=== PATIENT | female | born 1960 | race Caucasian/White ===

== ENCOUNTER 2017-11-21 12:24 | Day surgery (SDC) | payer OTHER, SELFPAY ==
[2017-11-21] VITALS (14 sets, daily range): BP systolic 105–157; BP diastolic 37–73; PULSE 74–118; RESP 15–18; TEMP 36.3–37.2; O2SAT 88–99; BMI 27.3
--- NOTE | 2017-11-21 | IMM_PTH ---
PATIENT: ENDY CAT LOC: [facility] [place] U#:[id number] AGE/SX: 57/F ROOM: RE11/21/[address]: Dr. Abhinav Hammer MD : 1960 BED: DIS: 11/21/2017 SPEC #: [id number] RECD: 11/25/17 11:46 STATUS: JORGE REGiana #: [id number] KENTRELL: 11/21/17 00:[address]: Abhinav Hammer DEPT: IMMUNOHISTOCHEMISTRY RECD BY: Cleveland Riggs ENTERED: 11/25/17 11:53 SP TYPE: IMMUNO OTHR DR: Dr. Starla Hinds DO Tissues: A - Axillary lymph node, NOS B - Axillary lymph node, NOS C - Right breast, NOS Procedures: CK8 (initial) CALPONIN-1 (add) CK7 (add) E-CAD (add) Pankeratin (initial) Pankeratin (add) P40 (add) PHYSICIAN & INSTITUTION [address] [address] SPECIMEN INFORMATION: Tissue Source: A. Right axillary sentinel lymph node tissue, B. Additional right axillary sentinel lymph node tissue, C. Right breast tissue Clinical Info: right upper-outer quadrant breast cancer, ER positive Specimen Number: [id number] A1, A2, A3, A4, B1, C3 CPT code: 93568 x2, 64037 x12 METHODOLOGY: Deparaffinized sections of prefer/formalin-fixed tissue or PAP/DQ stained slides are incubated with monoclonal/polyclonal antibodies/oligonucleotide probes. Localization is made via biotin free immunoperoxidase method. Appropriate controls are performed and reacted as expected. Results on target cell population are indicated in the following table: RESULTS: ANTIBODY / CLONE RESULT Block A1 AE1-3 (AE1/AE3/PCK26) negative CK7 (OV-TL12/30) negative Block A2 AE1-3 (AE1/AE3/PCK26) negative CK7 (OV-TL12/30) negative Block A3 AE1-3 (AE1/AE3/PCK26) negative CK7 (OV-TL12/30) negative Block A4 AE1-3 (AE1/AE3/PCK26) negative CK7 (OV-TL12/30) negative Block B1 AE1-3 (AE1/AE3/PCK26) negative CK7 (OV-TL12/30) negative Block C3 P40 (BC28) negative Calponin-1 (GE234C) negative CK8 (56srzoC58) positive E-Cad (ECH-6) positive These tests were developed and their performance characteristics determined by [facility]. They may not have been cleared or approved by the U.S. Food and Drug Administration. The FDA has determined that such clearance or approval is not necessary. INTERPRETATION: A. Right axillary sentinel lymph node tissue, biopsy: Four out of four lymph nodes, negative for metastatic carcinoma. B. Additional right axillary sentinel lymph node tissue, biopsy: One lymph node, negative for metastatic carcinoma. C. Right breast tissue, biopsy: Invasive ductal carcinoma. SJ:hemant 11/26/17
--- NOTE | 2017-11-21 | AXNB_PTH ---
PATIENT: ENDY CAT LOC: [facility] [place] U#:[id number] AGE/SX: 57/F ROOM: RE11/21/[address]: Dr. Abhinav Hammer MD : 1960 BED: DIS: 11/21/2017 SPEC #: [id number] RECD: 11/21/17 15:47 STATUS: JORGE REGiana #: [id number] KENTRELL: 11/21/17 00:[address]: Abhinav Hammer DEPT: SURGICAL PATHOLOGY RECD BY: Janay Hernandez ENTERED: 11/22/17 07:49 SP TYPE: AX NODE BX OTHR DR: Dr. Starla Hinds DO Tissues: A - Axillary lymph node, NOS B - Axillary lymph node, NOS C - Right breast, NOS Procedures: Frozen Section (charge) Frozen Section Add'l ([facility]) Surgery Specimen Level V Frozen (no charge) HEADER OPERATION: Right breast lumpectomy with right axillary sentinel lymph node PRE-OP DIAGNOSIS: Right upper-outer quadrant breast cancer, ER positive TISSUE SUBMITTED: A ? Right axillary sentinel lymph node tissue for FS at 1544, B ? Additional right axillary sentinel lymph node tissue FS at 1549, C ? Right breast tissue to mammo at 1604, short stitch richards posterior medial margin, double long ? superior, single long - anterior FROZEN SECTION DIAGNOSIS A. Right axillary sentinel lymph node tissue, biopsy: Three out of three lymph nodes, negative for metastatic carcinoma. B. Additional right axillary sentinel lymph node tissue, biopsy: One lymph node, negative for metastatic carcinoma. SJ:hemant 11/21/17 MICROSCOPIC DIAGNOSIS A. Right axillary sentinel lymph node, biopsy: Four out of four lymph nodes, negative for metastatic carcinoma. See comment. B. Additional right axillary sentinel lymph node tissue, biopsy: One lymph node, negative for metastatic carcinoma. C. Right breast, lumpectomy: Invasive ductal carcinoma. INVASIVE BREAST CANCER SUMMARY: (Including specimens A, B & C) Specimen ? partial breast Procedure ? excision without wire-guided localization Lymph node sampling ? sentinel lymph node Specimen integrity ? single intact specimen Specimen size ? 10 x 6 x 4 cm Specimen laterality - right Tumor site ? upper outer quadrant (as per clinical information) Tumor size ? 3 x 2 mm (measured microsciopically) Tumor focality ? single focus of invasive carcinoma. Macroscopic and Microscopic extent of tumor: Skin ? skin is not present Nipple ? not applicable Skeletal muscle ? no skeletal muscle present Ductal carcinoma in situ (DCIS) ? no ductal carcinoma in situ is present. Lobular carcinoma in situ (LCIS) ? not identified Histologic type of invasive carcinoma ? invasive ductal carcinoma (no special type) Histologic Grade (Isabel grade): Glandular/tubular differentiation - score 2 Nuclear pleomorphism - score 1 Mitotic count ? score 1 Overall grade - 1 (score of 4) Margins: Margins uninvolved by invasive carcinoma. The tumor is 0.3 cm away from the closest medial margin. Treatment effect ? response to presurgical (neoadjuvant) therapy - no known presurgical therapy. Lymph nodes: Number of sentinel lymph nodes examined - 5 Total number of lymph nodes examined (sentinel and nonsentinel) - 5 Number of lymph nodes with macrometastases, micrometastases and isolated tumor cells - 0 Method of evaluation of sentinel lymph nodes - H & E, multiple levels and IHC. Distance metastasis ? not applicable Additional pathologic findings ? a large hemorrhagic cavity, consistent with previous biopsy site. Fibrocystic changes and intraductal hyperplasia without atypia. Ancillary studies - previously performed on section of tumor ([id number] / [id number]). ER ? positive (>95%, strong) VT ? positive (12%, weak) Her2 wily ? negative (0) Her2 by dual MELISSA ? not performed Microcalcifications ? frequent microcalcification in non-neoplastic tissue. Clinical history - Please make reference to previous specimen ([id number]) right breast, stereotactic needle core biopsy with diagnosis of invasive ductal carcinoma. PATHOLOGIC STAGE: pT1a pN0(sn) Mx The above summary is in compliance with [employer] (CAP) Cancer Protocols Checklist and [place] Joint Committee on Cancer (AJCC), Staging Manual, 8th Ed. SJ:rg 11/25/17 COMMENT A & B. One additional lymph node is identified in the indurated area (block A4). The lymph nodes are negative for metastatic carcinoma on multiple H & E levels and immunohistochemical stains for cytokeratins ([id number]). C. Immunohistochemistry ([id number]) supports the diagnosis of invasive ductal carcinoma. Please make reference to previous specimen ([id number]) right breast, core biopsy with diagnosis of fragments of adipose tissue, blood clots and rare cluster of benign ductal cells, no pathologic diagnosis. The previous biopsy ([id number]) also shows changes consistent with previous biopsy site. Case has been reviewed in consultation with Dr. Mayes who concurs with the above diagnosis. IDC:AM MICROSCOPIC DESCRIPTION Slides are reviewed. GROSS DESCRIPTION A - Received fresh for frozen section diagnosis labeled with the patient's name is a specimen designated right axillary sentinel lymph node tissue. The specimen consists of two pieces of adipose tissue measuring in aggregate 6 x 5 x 2 cm. Three nodules consistent with lymph nodes are identified measuring 0.7 to 1 cm in greatest dimension. The lymph node tissue is submitted in entirety for frozen section diagnosis. [employer] sections are submitted in four cassettes as follows: 1 ? one lymph node, 2 & 3 ? each cassette containing one bisected lymph node, 4 ? indurated area, possible lymph node tissue. / SJ: 11/21/17 B - Received fresh for frozen section consultation/diagnosis labeled with the patient's name is a specimen designated additional right axillary sentinel lymph node tissue. The specimen consists of a piece of adipose tissue containing a nodule consistent with lymph node measuring 5 x 2.5 x 1 cm. One lymph node is identified measuring 1.5 cm in greatest dimension. The lymph node is submitted entirely for frozen section diagnosis in one cassette. / SJ: 11/21/17 C - Received fresh for intraoperative consultation labeled with the patient's name and designated right breast tissue. The specimen consists of a piece of yellow adipose tissue measuring 10 x 6 x 4 cm. No wire is identified. The specimen is oriented as follows: short stitch richards posterior medial margin, single long ? anterior, double long ? superior. The specimen is inked as follows: anterior ? yellow, posterior ? black, superior ? blue, medial ? red and lateral ? orange. Serial sections reveal a hemorrhagic cavity occupying most of the specimen measuring 8 x 4 x 2.5 cm. No tumor mass is identified. The biopsy cavity is 0.2 cm from the closest posterior margin. This information is conveyed to the surgeon intraoperatively. Sections of the rest of the specimen reveal bermudez-yellow adipose cut surfaces with scant fibrous areas. Also, the biopsy cavity is filled with multiple blood clots. Also present in the specimen are multiple blood clots. [employer] sections of the cavity with surrounding tissue including adjacent margins are submitted in 12 cassettes. / SJ:hemant 11/22/17 TC:0 CPT: 24694 x3, 14456 x2, 53545 x2, 69416
--- NOTE | 2017-11-21 12:38 | EKG12_ITS ---
Test Reason : PRE-OP Blood Pressure : / mmHG Vent. Rate : 071 BPM Atrial Rate : 071 BPM P-R Int : 136 ms QRS Dur : 080 ms QT Int : 396 ms P-R-T Axes : 009 034 025 degrees QTc Int : 430 ms Normal sinus rhythm Normal ECG Confirmed by LEXI DARBY, DAVIDSON ([id number]), publication editor GERONIMO SPIVEY ([id number]) on 11/27/2017 12:03:38 PM Referred By: Abhinav Hammer Confirmed By:DAVIDSON ELLIOTT MD
--- NOTE | 2017-11-21 12:39 | RAD_ITS ---
STUDY: X-RAY CHEST REASON FOR EXAM: Female, 57 years old. Dyspnea and shortness of breath. TECHNIQUE: Single AP portable view of the chest. COMPARISON: None. FINDINGS: The lungs are clear and expanded. Scattered calcified granulomas. There is no demonstrated pleural abnormality. Normal size heart. Normal mediastinum and leticia. Normal visualized pulmonary arteries. Normal visualized aortic arch and descending thoracic aorta. There are degenerative changes of the visualized thoracic spine. Normal visualized ribs, clavicles, and shoulders. There is no demonstrated abnormality of the visualized soft tissue structures of the upper abdomen. RAD/Chest 1 View IMPRESSION: Normal x-ray examination of the chest. Electronically Signed: Drake Castillo MD at 13:27 EST Tel [phone], Service support ,
[2017-11-21 13:21] LABS: Hematocrit 42.7 % (37-47); Hemoglobin 14.2 g/dl (12.0-15.0); Mean Corp Hgb Conc 33.3 g/gl (32-36); Mean Corpuscular Hgb 30.3 pg (27.0-32.0); Mean Corpuscular Volume 91.2 fL (81-99); Mean Platelet Vol. 9.4 fl (6.2-12.0); Platelet Count 285 K/mm3 (150-450); RBC Distribution Width CV 13.2 % (11.6-14.6); RBC Distribution Width SD 43.4 fl (35.1-43.9); Red Blood Count 4.68 M/mm3 (4.2-5.4); White Blood Count 6.2 K/mm3 (4.4-11.0)
[2017-11-21 13:23] LABS: Scan Indicated on CBC? Y/N NO
[2017-11-21 13:40] LABS: Anion Gap 7 (5-15); BUN 8 mg/dL (7-18); BUN/Creat Ratio 10.6 RATIO (10-20); Calcium,Total 8.8 mg/dL (8.5-10.1); Chloride 103 mmol/L (98-107); Creatinine, Serum 0.75 mg/dL (0.55-1.02); EST Glomerular Filtration Rate 84 mL/min (>60); Est Glom Filt Rate - Afr Amer 102 mL/min (>60); Estimated Creatinine Clearance 68.46 ml/min; Glucose 93 mg/dL (70-110); Sodium Level 138 mmol/L (136-145)
--- NOTE | 2017-11-21 15:07 | DCINST_ITS ---
Discharge Diet: Light diet - advance as tolerated - if you have questions about your diet instructions, please talk to you doctor. Discharge Activity: May Not Drive - for 1 week or while taking narcotic pain medicine. May shower in (days): 1 Lifting Restrictions: 10 pounds Call your doctor if your incision/area has: Continuous Slow Oozing, Sudden Increased Bleeding, Increased Pain/ Swelling, Increased Redness, Foul Smelling Discharge Call your doctor if you observe: Fever of 101 or Higher Suture Line Care: Avoid Pulling/Pushing, Avoid Pinching/Bending Additional Dressing/Incision Instructions:: You may remove the bulky tape dressing tomorrow. You may shower over your plastic dressing. You may remove the plastic dressing in 2 additional days. At any time you may remove dressings if there are signs of redness, blistering or irritation Allergies/Adverse Reactions: Allergies adhesive tape Allergy (Verified 11/20/17 13:35) Itching nickel Allergy (Verified 11/20/17 13:35) Rash soy Allergy (Verified 11/20/17 13:35) cough silicone Adverse Reaction (Verified 11/20/17 13:35) blisters Medications to take at Discharge buspirone 10 mg tablet 10 mg PO BID 10/24/17 cholecalciferol (vitamin D3) 2,000 unit capsule 2,000 unit PO DAILY 10/24/17 paroxetine 20 mg tablet 20 mg PO QDAY 10/24/17 Hydrocodone Bitart/Apap 5-325 [[place]am 5MG-325MG] 1 tablet PO Q6H PRN PRN #8 tablet 11/21/17 The following prescriptions were given: Hydrocodone Bitart/Apap 5-325 [[place]am 5MG-325MG] 1 tablet PO Q6H PRN PRN #8 tablet PRN Reason: Pain Primary Care Physician: Starla Hinds DO [Primary Care Provider] - Please Follow Up With: Abhinav Hammer MD - [phone] When: Call to make an appointment to be seen in about 7 days.
[2017-11-21] MEDS: Isosulfan Blue 1% 5 ML Vial (15:13)
[2017-11-21] MEDS: Bupivacaine Mpf 0.5% 30 ML VIAL (16:10)
--- NOTE | 2017-11-21 16:15 | HPBI_ITS ---
SURGICAL BREAST SPECIMEN RADIOGRAPH CLINICAL: Document presence of tissue clip marker in biopsy specimen. FINDINGS: Specimen shows presence of tissue clip marker. Electronically Signed: Drake Castillo MD at 8:17 EST Tel [phone], Service support , [facility]/Breast Biopsy Specimen
--- NOTE | 2017-11-21 16:24 | PCM.OPRPT ---
Problem List (1) Breast CA Status: Acute Qualifiers: Breast location: upper inner quadrant of breast Patient sex: female Laterality: right (2) Breast cancer Status: Acute Qualifiers: Breast location: upper inner quadrant of breast (3) Breast cancer in female Status: Acute Report of Operation Date of Procedure: 11/21/17 Pre-Operative Diagnosis: Upper inner quadrant right breast cancer with biopsy related hematoma Post-Operative Diagnosis: Same Surgery/Procedure Performed:: Right axillary blue dye sentinel lymph node biopsy with upper inner right breast lumpectomy Description of Surgical Findings:: Timeout and informed consent was obtained. 57-year-old female was taken to the operating room and placed supine on the table. She underwent general anesthesia. The right arm was carefully wrapped with soft roll and placed at right angles to the table with an arm fitch. The right retroareolar breast was prepped with alcohol. 2.5 cc of isosulfan blue dye was injected massage was minutes. The right breast and axilla were sterilely prepped and draped. An oblique incision was made in the right axilla sharp dissection carried down through significant amount of fibrofatty tissue. Very faint blue dye tracking was identified to a packet of lymph node material which was then dissected free. Hemostasis obtained with electrocautery and hemoclips. 2 small segments of tissue were removed and submitted. There was no residual blue staining. There is no residual palpable mass. That was then packed with gauze. I made a curvilinear incision in the upper inner right breast at the site of the significant hematoma. Then sharp and cautery dissection was performed circumferentially around the entire hematoma cavity. Immediately I did get into the hematoma we had aspirate some thrombus. I then was able to more successfully get around it inferiorly posteriorly and laterally. I placed a short suture posterior medial at the site where I got into it. I placed a single suture anteriorly and a long double suture superiorly. The cavity was inspected it was irrigated hemostasis was obtained the wound was closed with a deep layer of interrupted 3-0 Vicryl and the skin was proximally to the running septic or 4-0 Monocryl. The axilla was inspected that incision was closed with running subcuticular 4-0 Monocryl. Both lissette-incisional areas anesthetized with a total of 30 cc of 0.5% Marcaine. Steri-Strips Telfa OpSite dressings followed by bulky dry dressings were applied. Sponge instrument and needle counts were reported the surgeon for correct. Blood loss was minimal. She tired procedure well. Report of 4 sentinel nodes on frozen section negative for cancer. Specimen mammogram was obtained showing a marking clip in good position. Gross margins were felt to be free. Abhinav Hammer M.D., F.A.C.S.
[2017-11-21] MEDS: HYDROcodone Bitartrate/Apap 5/325 Tablet PO (19:42)
== END 2017-11-21 19:49 | disposition home or self-care (01) ==
LOC: SDC 12:25 → AC 12:27
PROVIDERS: Anesthesiology; Family Provider Internal Medicine; PCP Internal Medicine; Visit Provider Surgery
PROC: (CPT 19301; principal; 2017-11-21 14:05)
DX: C50.211 Malignant neoplasm of upper-inner quadrant of right female breast (principal); N64.89 Other specified disorders of breast; Z17.0 Estrogen receptor positive status [ER+]; D64.9 Anemia, unspecified; F41.9 Anxiety disorder, unspecified
CPT/HCPCS: 00400; 19301; 38525; 71045; 76098; 80048; 85027; 88305; 88307; 88331; 88332; 88341; 88342; 93005; J7120; J2405; Q9968

== ENCOUNTER → 2017-12-12 13:19 | Outpatient (CLI) | payer OTHER, SELFPAY ==
[2017-12-05 13:37] VITALS: BP 146/79; BMI 27.3
[2017-12-12 11:13] VITALS: BP 136/63; BMI 27.3
--- NOTE | 2017-12-12 13:22 | HPBD_ITS ---
STUDY: DUAL ENERGY X-RAY ABSORPTIOMETRY / DXA REASON FOR EXAM: Female, 57 years old. The patient is postmenopausal. No loss of height. History of breast cancer. TECHNIQUE: Bone Mineral Density (BMD) measurements of lumbar spine and bilateral hips were obtained. COMPARISON: None. FINDINGS: Lumbar Spine (L1-L4): g/cm2 (0.877) / T-score (-2.5) / Z-score (-1.5) Findings are suggestive of osteopenia with a moderate fracture risk. Left Femur Total: g/cm2 (0.828) / T-score (-1.4) / Z-score (-0.6) Left Femoral Neck: g/cm2 (0.772) / T-score (-1.9) / Z-score (-0.8) Right Femur Total: g/cm2 (0.844) / T-score (-1.3) / Z-score (-0.5) Right Femoral Neck: g/cm2 (0.780) / T-score (-1.9) / Z-score (-0.7) HPBD/Dexa Bone Density Study (HP) IMPRESSION: The patient is considered osteopenic as outlined below according to World [place] Organization (WHO) criteria with a moderate fracture risk. Reference Information: The T-score is the number of standard deviations above or below the standard which is normal for young adults at their peak bone mineral density. The World Health Organization (WHO) interprets the T-scores as follows: Above -1 Normal bone density Between -1 and -2.5 Osteopenia Equal to / or below -2.5 Osteoporosis As a practical clinical guideline, osteopenia may be graded as follows: Mild -1 through -1.5 Moderate -1.6 through -2.0 Severe -2.1 through -2.4 The Z-score is the number of standard deviations above or below age-matched controls. A Z-score of less than -1.5 would be considered abnormal. References: 1. NIH Osteoporosis and Related Bone Diseases http://www.osteo.org 2. International Society for Clinical Densitometry http://www.iscd.org 3. National Osteoporosis Foundation http://www.nof.org Electronically Signed: Drake Castillo MD at 14:59 EST Tel [phone], Service support ,
== END ==
PROVIDERS: Family Provider Internal Medicine; PCP Internal Medicine; Visit Provider Internal Medicine Hematology & Oncology
DX: Z78.0 Asymptomatic menopausal state (principal); Z79.899 Other long term (current) drug therapy
CPT/HCPCS: 77080

== ENCOUNTER → 2017-12-18 16:22 | Outpatient (CLI) | payer OTHER, SELFPAY ==
[2017-12-12 11:13] VITALS: BMI 27.3
[2017-12-24 16:05] LABS: HPV APTIMA, High Risk Negative (Negative)
== END ==
PROVIDERS: Family Provider Internal Medicine; PCP Internal Medicine; Visit Provider Nurse Practitioner Women's Health
DX: Z12.4 Encounter for screening for malignant neoplasm of cervix (principal); N89.8 Other specified noninflammatory disorders of vagina
CPT/HCPCS: 87070; 87205; 88175; G0145

== ENCOUNTER → 2018-09-22 08:28 | Outpatient (CLI) | payer OTHER, SELFPAY ==
[2017-12-12 11:13] VITALS: BMI 27.3
[2018-06-19 11:29] VITALS: BMI 29.2
--- NOTE | 2018-09-22 08:32 | BI_ITS ---
MAMMOGRAPHY - BILATERAL DIAGNOSTIC REASON FOR EXAM: Female, 58 years old. Status post right lumpectomy for invasive ductal carcinoma. PERTINENT HISTORY: Personal history of breast cancer. TECHNIQUE: Digital bilateral breast juliane (3D mammographic acquisition) in the CC and MLO projections. 2-D mediolateral oblique (MLO) and craniocaudad (CC) views of both breasts were obtained. CAD: Full Field Digital Mammography with Computer Added Detection was performed. COMPARISON: Comparison is made with prior mammogram dated September 17, 2017 and November 12, 2017. FINDINGS: Breast Composition: The breasts are heterogeneously dense, which may obscure small masses. There are no dominant masses or suspicious calcifications. The previously seen nodular density in the upper lateral portion of the right breast is not seen at this time. Surgical clips are seen in the right axillary region. Postsurgical changes are seen in the deep upper lateral aspect of the right breast most likely postsurgical in nature. Skin thickening of the right breast. No other significant abnormalities are identified. BI/DIAG MAMM W/CAD, BILAT IMPRESSION: Status post resection of the hematoma in the upper outer quadrant of the right breast. Postsurgical changes are seen in the upper lateral portion of the right breast. One year follow-up recommended. (A) ASSESSMENT CATEGORY: BIRADS Category 2: Benign. A letter regarding these results will be sent to the patient by the facility within 30 days. Approximately 10% of breast cancers are not detected by mammography. A normal mammogram should not delay biopsy of a clinically suspicious abnormality. Electronically Signed: Drake Castillo MD at 14:50 EST Tel [phone], Service support ,
== END ==
PROVIDERS: Family Provider Internal Medicine; PCP Internal Medicine; Referring Provider Student in an Organized Health Care Education/Training Program; Visit Provider Student in an Organized Health Care Education/Training Program
DX: C50.911 Malignant neoplasm of unspecified site of right female breast (principal)
CPT/HCPCS: 77062; 77066; G0279

== ENCOUNTER → 2019-09-24 10:58 | Outpatient (CLI) | payer OTHER, SELFPAY ==
[2018-09-22 09:35] VITALS: BMI 29.2
[2019-07-02 13:31] VITALS: BMI 28.8
--- NOTE | 2019-09-24 11:01 | BI_ITS ---
MAMMOGRAPHY - BILATERAL SCREENING REASON FOR EXAM: Female, 59 years old. Routine annual screening examination. PERTINENT HISTORY: Personal history of breast cancer. Prior right lumpectomy and radiation therapy. Prior right stereotactic breast biopsy. TECHNIQUE: Digital bilateral breast augustine (3D mammographic acquisition) in the CC and MLO projections. 2-D mediolateral oblique (MLO) and craniocaudad (CC) views of both breasts were obtained. CAD: Full Field Digital Mammography with Computer Added Detection was performed. COMPARISON: Comparison is made with prior study in September 22, 2018 and November 21, 2017. FINDINGS: Breast Composition: The breasts are heterogeneously dense, which may obscure small masses. There are no dominant masses or suspicious calcifications. Stable postoperative changes are seen in the upper deep central portion of the right breast in keeping with prior lumpectomy and node dissection. No new mass lesion or cluster of microcalcifications present. No other significant abnormalities are identified. There has been no significant change since the prior study. BI/SCREEN MAMM (CAD) W/AUGUSTINE BILAT IMPRESSION: Stable bilateral screening mammogram. Yearly follow-up mammogram recommended. (A) ASSESSMENT CATEGORY: BIRADS Category 2: Benign. A letter regarding these results will be sent to the patient by the facility within 30 days. Approximately 10% of breast cancers are not detected by mammography. A normal mammogram should not delay biopsy of a clinically suspicious abnormality. [id number] Electronically Signed: Drake Castillo, at 12:41 EST , Service support ,
== END ==
PROVIDERS: Family Provider Internal Medicine; PCP Internal Medicine; Referring Provider Student in an Organized Health Care Education/Training Program; Visit Provider Student in an Organized Health Care Education/Training Program
DX: Z12.31 Encounter for screening mammogram for malignant neoplasm of breast (principal)
CPT/HCPCS: 77063; 77067

== ENCOUNTER → 2020-01-12 10:36 | Outpatient (CLI) | payer OTHER, SELFPAY ==
[2018-09-22 09:35] VITALS: BMI 29.2
[2020-01-04 14:07] VITALS: BMI 30.1
--- NOTE | 2020-01-12 10:40 | BD_ITS ---
STUDY: DUAL ENERGY X-RAY ABSORPTIOMETRY / DXA REASON FOR EXAM: Female, 59 years old. 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 COMPARISON: Comparison is made with prior examination dated December 12, 2017. FINDINGS: Lumbar Spine (L1-L4): g/cm2 (0.980) / T-score (-1.7) / Z-score (-0.5) Findings are suggestive of osteopenia with a moderate fracture risk. Left Femur Total: g/cm2 (0.852) / T-score (-1.2) / Z-score (-0.3) Left Femoral Neck: g/cm2 (0.783) / T-score (-1.8) / Z-score (-0.6) Right Femur Total: g/cm2 (0.888) / T-score (-0.9) / Z-score (0.0) Right Femoral Neck: g/cm2 (0.819) / T-score (-1.6) / Z-score (-0.3) The T-Scores on the most recent prior examination were: Lumbar Spine (L1-L4): There has been improvement of bone density since the previous examination. Left Femur Total: which represents an improvement of 2.9%. Right Femur Total: which represents an improvement of 5.2%. BD/Dexa Bone Density Study IMPRESSION: The patient is considered osteopenic as outlined below according to World [place] Organization (WHO) criteria with a moderate fracture risk. There has been improvement of bone density since the previous examination. Reference Information: The T-score is the number of standard deviations above or below the standard which is normal for young adults at their peak bone mineral density. The World Health Organization (WHO) interprets the T-scores as follows: Above -1 Normal bone density Between -1 and -2.5 Osteopenia Equal to / or below -2.5 Osteoporosis As a practical clinical guideline, osteopenia may be graded as follows: Mild -1 through -1.5 Moderate -1.6 through -2.0 Severe -2.1 through -2.4 The Z-score is the number of standard deviations above or below age-matched controls. A Z-score of less than -1.5 would be considered abnormal. References: 1. NIH Osteoporosis and Related Bone Diseases http://www.osteo.org 2. International Society for Clinical Densitometry http://www.iscd.org 3. National Osteoporosis Foundation http://www.nof.org Electronically Signed: Drake Castillo, at 14:08 EDT , Service support ,
== END ==
PROVIDERS: PCP Internal Medicine; Referring Provider Internal Medicine Hematology & Oncology; Visit Provider Internal Medicine Hematology & Oncology
DX: C50.911 Malignant neoplasm of unspecified site of right female breast (principal); M85.80 Other specified disorders of bone density and structure, unspecified site; Z79.811 Long term (current) use of aromatase inhibitors
CPT/HCPCS: 77080

== ENCOUNTER 2020-09-30 00:14 | Emergency (ER) | payer OTHER, SELFPAY ==
[2018-09-22 09:35] VITALS: BMI 29.2
[2020-04-25 13:00] VITALS: BMI 30.1
[2020-09-30 00:14] VITALS: BP 141/74; PULSE 94; RESP 20; TEMP 36.4; O2SAT 91; BMI 29.4
[2020-09-30 00:26] VITALS: BP 141/74; PULSE 94; RESP 20; TEMP 36.4; O2SAT 91
--- NOTE | 2020-09-30 00:33 | CT_ITS ---
STUDY: CT ABDOMEN AND PELVIS WITH CONTRAST REASON FOR EXAM: Female, 60 years old. N/V RADIATION DOSAGE (If Supplied By Facility): CTDIvol = ( 14.00 ) mGy, DLP = ( 1029.07 ) mGycm TECHNIQUE: Transaxial images were obtained from the dome of the diaphragm to the symphysis pubis without oral contrast. IV 100mL Isovue-300 was administered. Sagittal and coronal images were reconstructed. Individualized dose optimization techniques were used for this CT. COMPARISON: None. FINDINGS: Ill-defined subpleural groundglass opacities are seen more prominent in the lung bases , may represent atypical pneumonia or viral pneumonia (COVID-19 ?). The visualized portions of the heart are within normal limits. Normal liver. Normal gallbladder and extrahepatic biliary system. Normal spleen. Normal pancreas. Normal bilateral adrenal glands. Normal right kidney. Normal left kidney. There is a small hiatal hernia. Normal small intestine. Normal colon. The appendix is visualized and appears normal. There is diffuse atherosclerotic calcification of the abdominal aorta, without a demonstrated aneurysm. Normal inferior vena cava. Normal retroperitoneum. Normal urinary bladder. Normal abdominal wall. Normal osseous structures. CT/Abdomen/Pelvis W IV Cont ONLY IMPRESSION: Ill-defined subpleural groundglass opacities are seen more prominent in the lung bases , may represent atypical pneumonia or viral pneumonia (COVID-19 ?). There is a small hiatal hernia. Electronically Signed: Meghan Bauer, at 2:10 EST Tel , Service support ,
--- NOTE | 2020-09-30 00:33 | EKG12_ITS ---
Test Reason : DYSRHYTHMIA Blood Pressure : / mmHG Vent. Rate : 090 BPM Atrial Rate : 090 BPM P-R Int : 142 ms QRS Dur : 074 ms QT Int : 352 ms P-R-T Axes : 015 022 009 degrees QTc Int : 430 ms Normal sinus rhythm Normal ECG Confirmed by LIZABETH DARBY, BERNARDO ([id number]), mapping editor VALDEMAR MCMANUS ([id number]) on 10/04/2020 9:04:57 AM Referred By: Confirmed By:BERNARDO BARONE MD
[2020-09-30 00:40] LABS: Absolute Lymphocyte Count 1.33 X10^3/uL (0.83-4.51); Absolute Neutrophil Count 4.2 X10^3/uL (2.0-7.7); Basophil# 0.01 X10^3/uL; Basophil% 0.2 % (0-1); Hematocrit 43.1 % (37-47); Hemoglobin 13.9 g/dL (12.0-15.0); Lymphocyte # 1.33 X10^3/ul (4.0); Lymphocyte % 22.4 % (19-41); Mean Corp Hgb Conc 32.3 g/dL (32-36); Mean Corpuscular Hgb 29.3 pg (27.0-32.0); Mean Corpuscular Volume 90.7 fL (81-99); Mean Platelet Vol. 9.9 fl (6.2-12.0); Monocyte% 6.7 % (0-10); NRBC Flagged by Analyzer 0 % (0-5); Neutrophil # 4.18 X10^3/uL (2.7-7.7); Neutrophil % 70.4 % (47-70); Platelet Count 213 K/mm3 (150-450); RBC Distribution Width CV 12.6 % (11.6-14.6); RBC Distribution Width SD 42.1 fl (35.1-43.9); Red Blood Count 4.75 M/mm3 (4.2-5.4); White Blood Count 5.9 K/mm3 (4.4-11.0)
[2020-09-30] MEDS: Ondansetron 4 MG/2 ML Vial IV (00:46)
--- NOTE | 2020-09-30 00:46 | RAD_ITS ---
STUDY: X-RAY CHEST REASON FOR EXAM: Female, 60 years old. PT TESTED POSITIVE FOR COVID 09/19. HAVING INCREASED N/V -- DENIES ANY CHEST PROBLEMS TECHNIQUE: Single AP portable view of the chest. COMPARISON: None. FINDINGS: The lungs are clear and expanded. There is no demonstrated pleural abnormality. Normal size heart. Normal mediastinum and leticia. Normal visualized pulmonary arteries. Normal visualized aortic arch and descending thoracic aorta. Normal visualized thoracic spine. There is degenerative osteoarthritis of the bilateral shoulders. There is no demonstrated abnormality of the visualized soft tissue structures of the upper abdomen. RAD/Chest 1 View (Portable) IMPRESSION: Degenerative changes, as described above. No demonstrated acute cardiopulmonary process. Electronically Signed: Meghan Bauer, at 1:47 EST Tel , Service support ,
[2020-09-30] MEDS: 0.9% Normal Saline 1,000 ML 1000 ML IV (00:47)
--- NOTE | 2020-09-30 00:47 | ED.VISSUMM ---
- ER Visit Summary Date of Service: 09/30/20 Chief Complaint: Nausea History of Present Illness: The patient is a 60 F presenting with nausea. Patient states she was diagnosed with Covid on September 19. She states her symptoms began with nausea and chills. She has had fever, chills at home. She states she has been taking Zofran for her nausea which was helping until recently. She complains of epigastric abdominal pain. She denies diarrhea. She has had decreased appetite and generalized fatigue. She denies chest pain or shortness of breath. She has a mild cough. Physical Examination: Vitals are stable. Patient is afebrile. Alert no acute distress. HEENT exam is unremarkable. Neck is supple. Lungs are clear and equal bilaterally. Heart is regular rate and rhythm. Abdomen is soft mild epigastric tenderness with no guarding or rebound Extremities are unremarkable. Skin is warm and dry. No focal neurologic deficit. Remainder of exam is unremarkable. Emergency Department Course and Treatment: Patient was given IV fluids, Zofran. CBC, chemistries unremarkable. Liver lipase are normal. Troponin negative. EKG is sinus rhythm rate of 90 with no acute ischemic changes. Chest x-ray shows no acute process. CT abdomen pelvis shows Ill-defined subpleural groundglass opacities are seen more prominent in the lung bases , may represent atypical pneumonia or viral pneumonia (COVID-19 ?). There is a small hiatal hernia. On reevaluation, patient's nausea has improved. Her ambulatory pulse ox is 94% on room air. She is given prescription for Phenergan. She is advised signs and symptoms for which to return to the ED. Advised to follow-up with primary care physician. Disposition: Discharge home Impression: COVID-19, nausea This note was generated with [employer] dictation software. It may contain incorrect words, spelling, and punctuation that were not noted in review of the chart prior to signing ED Disposition - Plan for ED Patient: Instructions: ED Nausea Vomiting Adult Prescriptions: proMETHazine tablet [Phenergan] 25 mg PO Q6H PRN PRN #10 tab PRN Reason: Nausea Prescription Printed Referrals: Starla Hinds DO [Primary Care Provider] -
[2020-09-30 01:07] LABS: ALB/GLOB Ratio 0.8 RATIO (0.9-2.4); AST(SGOT) 25 U/L (15-37); Alanine Aminotransfer ALT/SGPT 39 U/L (13-56); Albumin, Serum 3.4 g/dL (3.2-5.0); Alkaline Phosphatase 72 U/L (45-117); Anion Gap 9 (5-15); BUN 15 mg/dL (7-18); BUN/Creat Ratio 17.7 RATIO (10-20); Calcium,Total 8.5 mg/dL (8.5-10.1); Chloride 104 mmol/L (98-107); Creatinine, Serum 0.85 mg/dL (0.55-1.02); EST Glomerular Filtration Rate 73 mL/min (>60); Est Glom Filt Rate - Afr Amer 88 mL/min (>60); Estimated Creatinine Clearance 58.22 ml/min; Globulin 4.1 g/dL (2.2-4.2); Glucose 111 mg/dL (74-106); Lipase 94 U/L (73-393); Potassium 3.8 mmol/L (3.5-5.1); Protein, Total 7.5 g/dL (6.4-8.2); Sodium Level 140 mmol/L (136-145)
[2020-09-30 02:36] VITALS: O2SAT 95
--- NOTE | 2020-09-30 03:05 | ED.DEP ---
ED Disposition - Plan for ED Patient: Instructions: ED Nausea Vomiting Adult Prescriptions: proMETHazine tablet [Phenergan] 25 mg PO Q6H PRN PRN #10 tab PRN Reason: Nausea Prescription Printed Referrals: Starla Hinds DO [Primary Care Provider] -
[2020-09-30 03:24] VITALS: RESP 14
== END 2020-09-30 03:24 | disposition home or self-care (01) ==
LOC: ED 01:48
PROVIDERS: Emergency Provider Emergency Medicine; PCP Internal Medicine
DX: U07.1 COVID-19 (principal); R11.0 Nausea; R10.13 Epigastric pain; R05 Cough; K44.9 Diaphragmatic hernia without obstruction or gangrene; Z85.3 Personal history of malignant neoplasm of breast; Z79.899 Other long term (current) drug therapy
CPT/HCPCS: 71045; 74177; 80053; 83690; 84484; 85025; 93005; 96361; 96374; 99284; J7030; Q9967; J2405

== ENCOUNTER → 2020-11-08 14:39 | Outpatient (CLI) | payer OTHER, SELFPAY ==
[2018-09-22 09:35] VITALS: BMI 29.2
[2020-04-25 13:00] VITALS: BMI 30.1
[2020-11-08 12:36] VITALS: BMI 28.0
--- NOTE | 2020-11-08 14:41 | BI_ITS ---
MAMMOGRAPHY - BILATERAL SCREENING REASON FOR EXAM: Female, 60 years old. Routine annual screening examination. PERTINENT HISTORY: Personal history of breast cancer. Prior right lumpectomy. Aunt with breast cancer. TECHNIQUE: Digital bilateral breast augustine (3D mammographic acquisition) in the CC and MLO projections. 2-D mediolateral oblique (MLO) and craniocaudad (CC) views of both breasts were obtained. CAD: Full Field Digital Mammography with Computer Added Detection was performed. COMPARISON: Comparison is made with prior study dated 09/24/2019 and 09/22/2018. FINDINGS: Breast Composition: The breasts are heterogeneously dense, which may obscure small masses. There are no dominant masses or suspicious calcifications. The patient is status post lumpectomy in the deep upper lateral aspect of the right breast. Surgical clips are also seen in the right axillary region. No other significant abnormalities are identified. There has been no significant change since the prior study. BI/SCREEN MAMM (CAD) W/AUGUSTINE BILAT IMPRESSION: Stable bilateral screening mammogram. Yearly follow-up mammogram recommended. (A) ASSESSMENT CATEGORY: BIRADS Category 2: Benign. A letter regarding these results will be sent to the patient by the facility within 30 days. Approximately 10% of breast cancers are not detected by mammography. A normal mammogram should not delay biopsy of a clinically suspicious abnormality. [id number] Electronically Signed: Drake Castillo, at 15:40 EST , Service support ,
== END ==
PROVIDERS: PCP Internal Medicine; Referring Provider Student in an Organized Health Care Education/Training Program; Visit Provider Student in an Organized Health Care Education/Training Program
DX: Z12.31 Encounter for screening mammogram for malignant neoplasm of breast (principal)
CPT/HCPCS: 77063; 77067

== ENCOUNTER 2021-11-09 09:55 | Outpatient (CLI) | payer OTHER, SELFPAY ==
[2018-09-22 09:35] VITALS: BMI 29.2
[2021-05-09 11:29] VITALS: BMI 27.3
--- NOTE | 2021-11-09 09:56 | BI_ITS ---
MAMMOGRAPHY - BILATERAL SCREENING REASON FOR EXAM: Female, 61 years old. Routine annual screening examination. PERTINENT HISTORY: Personal history of breast cancer. Prior right lumpectomy. Aunt with breast cancer. TECHNIQUE: Digital bilateral breast augustine (3D mammographic acquisition) in the CC and MLO projections. 2-D mediolateral oblique (MLO) and craniocaudad (CC) views of both breasts were obtained. CAD: Full Field Digital Mammography with Computer Added Detection was performed. COMPARISON: Comparison is made with prior study dated 11/08/2020 and 09/24/2019. FINDINGS: Breast Composition: The breasts are heterogeneously dense, which may obscure small masses. There are no dominant masses or suspicious calcifications. Surgical clips are seen in the right axillary region in keeping with prior lumpectomy. Postoperative scarring is seen. No other significant abnormalities are identified. There has been no significant change since the prior study. BI/SCRN MAMM (CAD)W/AUGUSTINE BILAT IMPRESSION: Stable bilateral screening mammogram. Yearly follow-up mammogram recommended. (A) ASSESSMENT CATEGORY: BIRADS Category 2: Benign. A letter regarding these results will be sent to the patient by the facility within 30 days. Approximately 10% of breast cancers are not detected by mammography. A normal mammogram should not delay biopsy of a clinically suspicious abnormality. [id number] Electronically Signed: Drake Castillo MD at 11:03 EST , Service support ,
== END 2021-11-09 23:59 | disposition short-term general hospital (02) ==
LOC: OPBI 09:56
PROVIDERS: PCP Internal Medicine; Visit Provider Internal Medicine Hematology & Oncology
DX: Z12.31 Encounter for screening mammogram for malignant neoplasm of breast (principal)
CPT/HCPCS: 77063; 77067

== ENCOUNTER 2022-01-23 12:16 | Outpatient (CLI) | payer OTHER, SELFPAY ==
[2018-09-22 09:35] VITALS: BMI 29.2
--- NOTE | 2022-01-23 12:20 | BD_ITS ---
STUDY: DUAL ENERGY X-RAY ABSORPTIOMETRY / DXA REASON FOR EXAM: Female, 61 years old. SCREENING TECHNIQUE: Bone Mineral Density (BMD) measurements of lumbar spine and bilateral hips were obtained. COMPARISON: Comparison is made with prior study 01/12/2020. FINDINGS: Lumbar Spine (L1-L4): g/cm2 (0.841) / T-score (-1.9) / Z-score (-0.3) Findings are suggestive of osteopenia with a moderate fracture risk. Left Femur Total: g/cm2 (0.800) / T-score (-1.2) / Z-score (-0.1) Left Femoral Neck: g/cm2 (0.633) / T-score (-1.9) / Z-score (-0.6) Right Femur Total: g/cm2 (0.796) / T-score (-1.2) / Z-score (-0.2) Right Femoral Neck: g/cm2 (0.631) / T-score (-2.0) / Z-score (-0.6) The T-Scores on the most recent prior examination were: Lumbar Spine (L1-L4): There has been worsening of bone density since the previous examination. Left Femur Total: which represents an improvement of 1.2%. Right Femur Total: which represents a worsening of 3.6%. BD/Dexa Bone Density Study IMPRESSION: The patient is considered osteopenic as outlined below according to World [place] Organization (WHO) criteria with a moderate fracture risk. There has been worsening of bone density since the previous examination. Reference Information: The T-score is the number of standard deviations above or below the standard which is normal for young adults at their peak bone mineral density. The World Health Organization (WHO) interprets the T-scores as follows: Above -1 Normal bone density Between -1 and -2.5 Osteopenia Equal to / or below -2.5 Osteoporosis As a practical clinical guideline, osteopenia may be graded as follows: Mild -1 through -1.5 Moderate -1.6 through -2.0 Severe -2.1 through -2.4 The Z-score is the number of standard deviations above or below age-matched controls. A Z-score of less than -1.5 would be considered abnormal. References: 1. NIH Osteoporosis and Related Bone Diseases www osteo.org 2. International Society for Clinical Densitometry www iscd.org 3. National Osteoporosis Foundation www nof.org Electronically Signed: Drake Castillo MD at 8:10 EDT ,
== END 2022-01-23 23:59 | disposition home or self-care (01) ==
LOC: OPBD 12:17
PROVIDERS: PCP Internal Medicine; Referring Provider Internal Medicine Hematology & Oncology; Visit Provider Internal Medicine Hematology & Oncology
DX: M85.89 Other specified disorders of bone density and structure, multiple sites (principal); Z79.811 Long term (current) use of aromatase inhibitors
CPT/HCPCS: 77080

== ENCOUNTER → 2022-03-16 | Outpatient (CLI) | payer OTHER, SELFPAY ==
[2018-09-22 09:35] VITALS: BMI 29.2
[2022-03-16 12:32] LABS: Vitamin D,25 Hydroxy 53.1 ng/mL
[2022-03-16 12:39] LABS: Thyroid Stim Hormone (TSH) 0.97 uIU/mL (0.358-3.74)
[2022-03-16 12:43] LABS: PTHIN 67.9 pg/mL (18.4-80.1)
== END | disposition home or self-care (01) ==
LOC: BIMLAB 10:34
PROVIDERS: PCP Internal Medicine; Referring Provider Internal Medicine Endocrinology, Diabetes & Metabolism; Visit Provider Internal Medicine Endocrinology, Diabetes & Metabolism
DX: M81.0 Age-related osteoporosis without current pathological fracture (principal); E55.9 Vitamin D deficiency, unspecified
CPT/HCPCS: 36415; 82306; 83970; 84443

== ENCOUNTER → 2022-03-20 | Outpatient (CLI) | payer OTHER, SELFPAY ==
[2018-09-22 09:35] VITALS: BMI 29.2
[2022-03-20 13:05] LABS: (24 HR) Urine Calcium 119.8 mg/24 HR (42.0-353.0); 24HR UR TOTAL VOLUME 2350 ml; Calcium Urine pH Range 1; Urine Calcium (Random) 5.1 (Not Estab.)
== END | disposition home or self-care (01) ==
LOC: LABSPEC 11:24
PROVIDERS: PCP Internal Medicine; Referring Provider Internal Medicine Endocrinology, Diabetes & Metabolism; Visit Provider Internal Medicine Endocrinology, Diabetes & Metabolism
DX: M81.0 Age-related osteoporosis without current pathological fracture (principal)
CPT/HCPCS: 81050; 82340

== ENCOUNTER 2022-09-17 11:57 | Outpatient (CLI) | payer OTHER, SELFPAY ==
[2018-09-22 09:35] VITALS: BMI 29.2
[2022-09-23 13:22] LABS: HPV APTIMA, High Risk Negative (Negative)
== END 2022-09-17 23:59 | disposition home or self-care (01) ==
LOC: LABSPEC 12:00
PROVIDERS: PCP Internal Medicine; Visit Provider Registered Nurse
DX: Z12.4 Encounter for screening for malignant neoplasm of cervix (principal)
CPT/HCPCS: 87624; 88175; G0145

== ENCOUNTER → 2022-11-12 | Outpatient (CLI) | payer OTHER, SELFPAY ==
[2018-09-22 09:35] VITALS: BMI 29.2
--- NOTE | 2022-11-12 09:58 | BI_ITS ---
MAMMOGRAPHY - BILATERAL SCREENING REASON FOR EXAM: Female, 62 years old. Routine annual screening examination. PERTINENT HISTORY: Personal history of breast cancer. Prior left lumpectomy and radiation treatment. History of prior right lumpectomy and stereotactic breast biopsy. Onto with breast cancer. TECHNIQUE: Digital bilateral breast augustine (3D mammographic acquisition) in the CC and MLO projections. 2-D mediolateral oblique (MLO) and craniocaudad (CC) views of both breasts were obtained. CAD: Full Field Digital Mammography with Computer Added Detection was performed. COMPARISON: Comparison is made with prior study dated 11/09/2021 and 11/08/1999 FINDINGS: Breast Composition: The breasts are heterogeneously dense, which may obscure small masses. New focal area of the soft tissue density and architectural distortion in the deep upper lateral aspect of the left breast. Correlation with ultrasound is recommended for further evaluation. Once again, the patient is status post lumpectomy in the deep upper lateral aspect of the right breast with the postsurgical scarring and deformity. Surgical clips also seen in the right axillary region. No other significant abnormalities are identified. BI/SCRN MAMM (CAD)W/AUGUSTINE BILAT IMPRESSION: New focal area of the soft tissue density not detectable distortion in the deep upper lateral aspect of the left breast as compared to prior study. Correlation with ultrasound is recommended. The remainder of the examination is unchanged. ASSESSMENT CATEGORY: BIRADS Category 0: Incomplete. Need additional imaging evaluation. A letter regarding these results will be sent to the patient by the facility within 30 days. Approximately 10% of breast cancers are not detected by mammography. A normal mammogram should not delay biopsy of a clinically suspicious abnormality. [id number] Electronically Signed: Drake Castillo MD at 10:50 EST ,
== END | disposition home or self-care (01) ==
LOC: OPBI 09:56
PROVIDERS: PCP Internal Medicine; Visit Provider Internal Medicine Hematology & Oncology
DX: Z12.31 Encounter for screening mammogram for malignant neoplasm of breast (principal); N64.89 Other specified disorders of breast
CPT/HCPCS: 77063; 77067

== ENCOUNTER → 2022-11-14 | Outpatient (CLI) | payer OTHER, SELFPAY ==
[2018-09-22 09:35] VITALS: BMI 29.2
--- NOTE | 2022-11-14 10:48 | US_ITS ---
STUDY: ULTRASOUND BREAST - LEFT REASON FOR EXAM: Female, 62 years old. Abnormal screening mammogram. TECHNIQUE: Axial and longitudinal images of the LEFT breast were performed with a high resolution ultrasound transducer. # OF IMAGES: 39 COMPARISON: Comparison is made with prior mammogram done earlier in the day and prior mammogram dated 11/12/2022. FINDINGS: LEFT Breast: The lateral half of the left breast was examined with ultrasound. There is heterogeneously dense fibroglandular tissue. No sonographic abnormality is seen. Additional views of the left breast were obtained. Persistent architectural distortion. This may represent post breast reduction surgery. Correlation with MRI is recommended. US/Breast Limited Unilateral IMPRESSION: Unremarkable sonogram. Persistent architectural distortion in the axillary region of the left breast most likely secondary to prior breast reduction surgery. Correlation with MRI is recommended. ASSESSMENT CATEGORY: BIRADS Category 0: Incomplete. Need additional imaging evaluation. A letter regarding these results will be sent to the patient by the facility within 30 days. Electronically Signed: Drake Castillo MD at 12:54 EST ,
--- NOTE | 2022-11-14 11:11 | BI_ITS ---
MAMMOGRAPHY - UNILATERAL DIAGNOSTIC: LEFT BREAST REASON FOR EXAM: Female, 62 years old. Abnormal screening mammogram. PERTINENT HISTORY: Personal history of breast cancer. History of prior right lumpectomy and radiation treatment. Recent bilateral breast reduction surgery. TECHNIQUE: Compression spot views of the left breast were obtained in the mediolateral oblique and craniocaudad views. CAD: Full Field Digital Mammography with Computer Added Detection was performed. COMPARISON: Comparison is made with prior mammogram dated 11/12/2022 and 11/09/2021. FINDINGS: Breast Composition: The breasts are heterogeneously dense, which may obscure small masses. Persistent architectural distortion and soft tissue density in the axillary region of the left breast. Correlation with ultrasound is recommended. No other significant abnormalities are identified. BI/DIAG MAMM W/CAD, UNILAT IMPRESSION: Stable unilateral diagnostic mammogram. Targeted ultrasound of the left breast is recommended. ASSESSMENT CATEGORY: BIRADS Category 0: Incomplete. Need additional imaging evaluation. A letter regarding these results will be sent to the patient by the facility within 30 days. Approximately 10% of breast cancers are not detected by mammography. A normal mammogram should not delay biopsy of a clinically suspicious abnormality. Electronically Signed: Drake Castillo MD at 12:52 EST ,
== END | disposition home or self-care (01) ==
LOC: OPUS 10:46
PROVIDERS: PCP Internal Medicine; Visit Provider Internal Medicine Hematology & Oncology
DX: R92.2 Inconclusive mammogram (principal)
CPT/HCPCS: 76642; 77065

== ENCOUNTER → 2022-11-30 | Outpatient (CLI) | payer OTHER, SELFPAY ==
[2018-09-22 09:35] VITALS: BMI 29.2
--- NOTE | 2022-11-30 12:32 | MRI_ITS ---
STUDY: BILATERAL BREAST MR WITHOUT AND WITH CONTRAST REASON FOR EXAM: Female, 62 years old. Follow-up after breast cancer. Architectural distortion on left breast ultrasound examination dated November 14, 2022. TECHNIQUE: Multi-sequence multi-echo imaging of both breasts was performed with a dedicated breast coil. T1-weighted and T2-weighted images were performed before the administration of contrast. T1-weighted images were also performed after the intravenous administration of 15ml Clariscan. COMPARISON: Bilateral mammogram dated November 12, 2022 and left breast ultrasound November 14, 2022. FINDINGS: RIGHT BREAST: Scattered fibroglandular densities with minimal background enhancement. There are no abnormal enhancing masses or areas of non-mass enhancement in the right breast. LEFT BREAST: Scattered fibroglandular densities with minimal background enhancement. Postlumpectomy changes in the left breast with no abnormal enhancing regions. There are no enlarged or abnormal lymph nodes. There is no abnormality in the visualized regions of the chest or liver. MRI/Breast Bilateral W/O and W IMPRESSION: Postlumpectomy changes in the left breast. No other abnormality. Follow-up yearly mammogram be appropriate. CATEGORY: BIRADS Category 2: Benign. A letter regarding these results will be sent to the patient by the facility within 30 days. Electronically Signed: Michael Mo, at 15:06 EST ,
== END | disposition home or self-care (01) ==
PROVIDERS: PCP Internal Medicine; Visit Provider Internal Medicine Hematology & Oncology
DX: R92.2 Inconclusive mammogram (principal); C50.911 Malignant neoplasm of unspecified site of right female breast
CPT/HCPCS: 77049; A9575; A4216; C8908

== ENCOUNTER → 2023-11-15 | Outpatient (CLI) | payer OTHER, SELFPAY ==
[2018-09-22 09:35] VITALS: BMI 29.2
--- NOTE | 2023-11-15 09:11 | BI_ITS ---
MAMMOGRAPHY - BILATERAL SCREENING REASON FOR EXAM: Female, 63 years old. Routine annual screening examination. PERTINENT HISTORY: Personal history of breast cancer. Prior right lumpectomy. Prior bilateral breast reduction surgery. TECHNIQUE: Digital bilateral breast augustine (3D mammographic acquisition) in the CC and MLO projections. 2-D mediolateral oblique (MLO) and craniocaudad (CC) views of both breasts were obtained. CAD: Full Field Digital Mammography with Computer Added Detection was performed. COMPARISON: Comparison is made with prior study dated November 12, 2022 and May 09, 2022 FINDINGS: Breast Composition: The breasts are heterogeneously dense, which may obscure small masses. There are no dominant masses or suspicious calcifications. The patient is status post lumpectomy in the deep upper lateral aspect of the right breast with resultant postoperative architectural distortion in the scarring. Surgical clips are also seen in the right axilla. No other significant abnormalities are identified. There has been no significant change since the prior study. BI/SCRN MAMM (CAD)W/AUGUSTINE BILAT IMPRESSION: Stable bilateral screening mammogram. Yearly follow-up mammogram recommended. (A) ASSESSMENT CATEGORY: BIRADS Category 2: Benign. A letter regarding these results will be sent to the patient by the facility within 30 days. Approximately 10% of breast cancers are not detected by mammography. A normal mammogram should not delay biopsy of a clinically suspicious abnormality. [id number] Electronically Signed: Drake Castillo MD at 9:54 EST ,
== END | disposition home or self-care (01) ==
LOC: OPBI 09:10
PROVIDERS: PCP Internal Medicine; Referring Provider Internal Medicine Hematology & Oncology; Visit Provider Internal Medicine Hematology & Oncology
DX: Z12.31 Encounter for screening mammogram for malignant neoplasm of breast (principal); Z85.3 Personal history of malignant neoplasm of breast
CPT/HCPCS: 77063; 77067

== ENCOUNTER → 2024-04-02 | Outpatient (CLI) | payer OTHER, SELFPAY ==
[2018-09-22 09:35] VITALS: BMI 29.2
--- NOTE | 2024-04-02 13:48 | BD_ITS ---
STUDY: DUAL ENERGY X-RAY ABSORPTIOMETRY / DXA REASON FOR EXAM: Female, 64 years old. 733.00OsteoporosisBONE DENSITY REASON FOR EXAM TECHNIQUE: Bone Mineral Density (BMD) measurements of lumbar spine and bilateral hips were obtained. COMPARISON: Comparison is made with prior study January 23, 2022. FINDINGS: Lumbar Spine (L1-L4): g/cm2 (0.868) / T-score (-1.6) / Z-score (0.1) Findings are suggestive of osteopenia with a moderate fracture risk. Left Femur Total: g/cm2 (0.843) / T-score (-0.8) / Z-score (0.4) Left Femoral Neck: g/cm2 (0.640) / T-score (-1.9) / Z-score (-0.4) Right Femur Total: g/cm2 (0.845) / T-score (-0.8) / Z-score (0.4) Right Femoral Neck: g/cm2 (0.641) / T-score (-1.9) / Z-score (-0.4) The T-Scores on the most recent prior examination were: Lumbar Spine (L1-L4): There has been improvement of bone density since the previous examination. Left Femur Total: which represents an improvement of 5.4%. Right Femur Total: which represents an improvement of 6.2%. BD/Dexa Bone Density Study IMPRESSION: The patient is considered osteopenic as outlined below according to World [place] Organization (WHO) criteria with a moderate fracture risk. There has been improvement of bone density since the previous examination. Reference Information: The T-score is the number of standard deviations above or below the standard which is normal for young adults at their peak bone mineral density. The World Health Organization (WHO) interprets the T-scores as follows: Above -1 Normal bone density Between -1 and -2.5 Osteopenia Equal to / or below -2.5 Osteoporosis As a practical clinical guideline, osteopenia may be graded as follows: Mild -1 through -1.5 Moderate -1.6 through -2.0 Severe -2.1 through -2.4 The Z-score is the number of standard deviations above or below age-matched controls. A Z-score of less than -1.5 would be considered abnormal. References: 1. NIH Osteoporosis and Related Bone Diseases www osteo.org 2. International Society for Clinical Densitometry www iscd.org 3. National Osteoporosis Foundation www nof.org Electronically Signed: Drake Castillo MD at 9:50 EDT ,
== END | disposition home or self-care (01) ==
PROVIDERS: PCP Internal Medicine; Referring Provider Internal Medicine; Visit Provider Internal Medicine
DX: M81.0 Age-related osteoporosis without current pathological fracture (principal)
CPT/HCPCS: 77080

== ENCOUNTER → 2024-09-08 | Outpatient (CLI) | payer OTHER, SELFPAY ==
[2018-09-22 09:35] VITALS: BMI 29.2
--- NOTE | 2024-09-08 08:40 | RAD_ITS ---
STUDY: X-RAY - ESOPHAGUS (BARIUM SWALLOW) WITH FLUOROSCOPY REASON FOR EXAM: Female, 64 years old. ESOPHOGRAM with 13mm tablet -- Dysphagia TECHNIQUE: 53 fluoroscopic view(s) of the esophagus were obtained following swallowing of barium. FLUOROSCOPY TIME (if supplied): (45 seconds) minutes/seconds COMPARISON: None. FINDINGS: There is no demonstrated esophageal foreign body. There is no demonstrated stricture or mucosal abnormality. Small sliding hiatal hernia without gastroesophageal reflux. The patient ingested a 12 mm tablet of barium without any difficulty. There is atherosclerotic calcification of the aortic arch with tortuosity of the descending aorta. Normal visualized pulmonary parenchyma. There are diffuse degenerative changes of the visualized thoracic spine. RAD/Esophagus Dual Contrast IMPRESSION: Small sliding hiatal hernia without gastroesophageal reflux. Electronically Signed: Drake Castillo MD at 9:32 EST ,
== END | disposition home or self-care (01) ==
PROVIDERS: PCP Internal Medicine; Referring Provider Internal Medicine; Visit Provider Internal Medicine
DX: R13.10 Dysphagia, unspecified (principal)
CPT/HCPCS: 74221

== ENCOUNTER → 2024-11-16 | Outpatient (CLI) | payer OTHER, SELFPAY ==
[2018-09-22 09:35] VITALS: BMI 29.2
--- NOTE | 2024-11-16 09:46 | BI_ITS ---
MAMMOGRAPHY - BILATERAL SCREENING REASON FOR EXAM: Female, 64 years old. Routine annual screening examination. PERTINENT HISTORY: Personal history of breast cancer. Prior right lumpectomy and stereotactic breast biopsy of the right breast. Status post bilateral breast reduction surgery. TECHNIQUE: Digital bilateral breast augustine (3D mammographic acquisition) in the CC and MLO projections. 2-D mediolateral oblique (MLO) and craniocaudad (CC) views of both breasts were obtained. CAD: Full Field Digital Mammography with Computer Added Detection was performed. COMPARISON: Comparison is made with prior study dated November 15, 2023 and November 14, 2022. FINDINGS: Breast Composition: The breasts are heterogeneously dense, which may obscure small masses. There are no dominant masses or suspicious calcifications. Once again, the patient status post lumpectomy in the upper lateral aspect of the right breast with resultant deformity of the right breast and the postoperative scarring. Surgical clips are also seen in the right axilla. No other significant abnormalities are identified. There has been no significant change since the prior study. BI/SCRN MAMM (CAD)W/AUGUSTINE BILAT IMPRESSION: Stable bilateral screening mammogram. Yearly follow-up mammogram recommended. (A) ASSESSMENT CATEGORY: BIRADS Category 2: Benign. A letter regarding these results will be sent to the patient by the facility within 30 days. Approximately 10% of breast cancers are not detected by mammography. A normal mammogram should not delay biopsy of a clinically suspicious abnormality. [id number] Electronically Signed: Drake Castillo MD at 11:02 EST ,
== END | disposition home or self-care (01) ==
LOC: OPBI 09:45
PROVIDERS: PCP Internal Medicine; Referring Provider Internal Medicine Hematology & Oncology; Visit Provider Internal Medicine Hematology & Oncology
DX: Z12.31 Encounter for screening mammogram for malignant neoplasm of breast (principal); Z85.3 Personal history of malignant neoplasm of breast